=== PATIENT | male | born 1980 | race Caucasian/White ===

== ENCOUNTER 2020-11-21 09:09 | Outpatient (CLI) | payer BC | END 2020-11-21 09:10 | disposition home or self-care (01) | LOC: DTY/OP 09:09 | PROVIDERS: ATTEND Specialist | DX: Z01.818 Encounter for other preprocedural examination (principal); Z71.3 Dietary counseling and surveillance; E66.01 Morbid (severe) obesity due to excess calories | CPT/HCPCS: 97802 ==

== ENCOUNTER 2020-12-19 10:01 | Outpatient (CLI) | payer BC | END 2020-12-19 10:02 | disposition home or self-care (01) | LOC: DTY/OP 10:01 | PROVIDERS: ATTEND Specialist | DX: Z01.818 Encounter for other preprocedural examination (principal); Z71.3 Dietary counseling and surveillance; E66.01 Morbid (severe) obesity due to excess calories | CPT/HCPCS: 97802 ==

== ENCOUNTER 2021-03-06 08:17 | Outpatient (CLI) | payer BC | END 2021-03-06 08:18 | disposition home or self-care (01) | LOC: DTY/OP 08:17 | PROVIDERS: ATTEND Specialist | DX: Z01.818 Encounter for other preprocedural examination (principal); E66.01 Morbid (severe) obesity due to excess calories | CPT/HCPCS: 97802 ==

== ENCOUNTER 2021-03-30 12:48 | Outpatient (CLI) | payer BC | END 2021-03-30 12:49 | disposition home or self-care (01) | LOC: DTY/OP 12:48 | PROVIDERS: ATTEND Specialist | DX: Z01.818 Encounter for other preprocedural examination (principal); E66.01 Morbid (severe) obesity due to excess calories; Z71.9 Counseling, unspecified | CPT/HCPCS: 97802 ==

== ENCOUNTER 2021-04-17 10:03 | Outpatient (CLI) | payer BC | END 2021-04-17 10:04 | disposition home or self-care (01) | LOC: DTY/OP 10:03 | PROVIDERS: ATTEND Specialist | DX: Z01.818 Encounter for other preprocedural examination (principal); E66.01 Morbid (severe) obesity due to excess calories | CPT/HCPCS: 97802 ==

== ENCOUNTER 2021-05-15 09:46 | Outpatient (CLI) | payer BC | END 2021-05-15 09:47 | disposition home or self-care (01) | LOC: DTY/OP 09:46 | PROVIDERS: ATTEND Specialist | DX: Z01.818 Encounter for other preprocedural examination (principal); E66.01 Morbid (severe) obesity due to excess calories | CPT/HCPCS: 97802 ==

== ENCOUNTER 2021-05-15 13:08 | Outpatient (CLI) | payer BC | END 2021-05-15 13:09 | disposition home or self-care (01) | LOC: RAD 13:08 | PROVIDERS: ATTEND Surgery | DX: K21.9 Gastro-esophageal reflux disease without esophagitis (principal) | CPT/HCPCS: 74246 ==

== ENCOUNTER 2021-06-19 09:35 | Outpatient (CLI) | payer BC | END 2021-06-19 09:36 | disposition home or self-care (01) | LOC: DTY/OP 09:35 | PROVIDERS: ATTEND Specialist | DX: Z01.818 Encounter for other preprocedural examination (principal); E66.01 Morbid (severe) obesity due to excess calories; Z71.3 Dietary counseling and surveillance | CPT/HCPCS: 97802 ==

== ENCOUNTER 2021-07-17 09:41 | Outpatient (CLI) | payer BC | END 2021-07-17 09:42 | disposition home or self-care (01) | LOC: DTY/OP 09:41 | PROVIDERS: ATTEND Specialist | DX: Z01.818 Encounter for other preprocedural examination (principal); E66.01 Morbid (severe) obesity due to excess calories; Z71.3 Dietary counseling and surveillance | CPT/HCPCS: 97802 ==

== ENCOUNTER 2021-08-14 09:47 | Outpatient (CLI) | payer BC | END 2021-08-14 09:48 | disposition home or self-care (01) | LOC: DTY/OP 09:47 | PROVIDERS: ATTEND Specialist | DX: Z01.818 Encounter for other preprocedural examination (principal); E66.01 Morbid (severe) obesity due to excess calories; Z71.3 Dietary counseling and surveillance | CPT/HCPCS: 97802 ==

== ENCOUNTER 2021-09-18 09:53 | Outpatient (CLI) | payer BC | END 2021-09-18 09:54 | disposition home or self-care (01) | LOC: DTY/OP 09:53 | PROVIDERS: ATTEND Specialist | DX: Z01.818 Encounter for other preprocedural examination (principal); E66.01 Morbid (severe) obesity due to excess calories; Z71.3 Dietary counseling and surveillance | CPT/HCPCS: 97802 ==

== ENCOUNTER 2021-10-15 09:53 | Outpatient (CLI) | payer BC | END 2021-10-15 09:54 | disposition home or self-care (01) | LOC: DTY/OP 09:53 | PROVIDERS: ATTEND Specialist | DX: Z01.818 Encounter for other preprocedural examination (principal); E66.01 Morbid (severe) obesity due to excess calories; Z71.3 Dietary counseling and surveillance; Z68.41 Body mass index [BMI] 40.0-44.9, adult | CPT/HCPCS: 97802 ==